=== PATIENT | male | born 1950 | race Caucasian/White ===

== ENCOUNTER 2016-10-02 07:59 | Day surgery (SDC) | payer BC, OTHER ==
[2016-10-02 08:36] VITALS: BMI 30.7
[2016-10-02] MEDS ORDERED: PROPOFOL 20 ML ONE ×2 (08:37)
[2016-10-02] MEDS ORDERED: METOPROLOL TARTRATE 5 MG/5 ML VIAL ONE (09:22)
[2016-10-02 09:53] VITALS: TEMP 97.6
[2016-10-02 11:00] VITALS: BP 122/57; PULSE 77
--- NOTE | 2016-10-03 12:35 | PATH ---
Surgical Pathology Report Patient Name: JUAN ABBASI [facility]. Rec. #: [id number] /Age/Gender: 1950 (Age: 66) / M Account: [id number] Location: U-ENDOSCOPY Taken: 10/02/2016 Received: 10/02/2016 Reported: 10/03/2016 Physicians: Sera Brothers M.D. Specimen(s) Received A: BX 2ND PORTION DUODENUM & DUODENAL BULB B: BX ANTRUM C: BX GE JUNCTION D: BX DISTAL ESOPHAGUS E: BX MID ESOPHAGUS F: POLYP CECUM G: POLYP DISTAL TRANSVERSE COLON H: POLYP DESCENDING COLON I: POLYP SIGMOID STRICTURE J: BX RECTAL POLYP Clinical History Dysphagia, colon cancer screening, polyps surveillance Distal esophageal stricture with GE nodule, GERD, atrophic gastritis, colon polyps Final Diagnosis A. DUODENUM, SECOND PORTION AND BULB, BIOPSY: DUODENAL MUCOSA WITH ACTIVE AND CHRONIC INFLAMMATION, FOCAL SURFACE ULCERATION AND ULCER SLOUGH, [place] HYPERPLASIA AND FOCAL GASTRIC METAPLASIA CONSISTENT WITH ACTIVE PEPTIC DUODENITIS. NO HISTOLOGIC EVIDENCE OF GLUTEN SENSITIVE ENTEROPATHY (CELIAC DISEASE). B. STOMACH, ANTRUM, BIOPSY: GASTRIC OXYNTIC AND ANTRAL MUCOSA WITH MODERATE CHRONIC GASTRITIS AND FOVEOLAR HYPERPLASIA. IMMUNOSTAIN FOR H. PYLORI IS NEGATIVE FOR ORGANISMS. C. GE JUNCTION, BIOPSY: SQUAMOCOLUMNAR JUNCTIONAL MUCOSA WITH CHRONIC INFLAMMATION AND REFLUX TYPE CHANGES. NO INTESTINAL METAPLASIA (WESTBROOK'S ESOPHAGUS) IDENTIFIED. D. ESOPHAGUS, DISTAL, STRICTURE, BIOPSY: SQUAMOUS EPITHELIUM WITH CHRONIC INFLAMMATION, REFLUX TYPE CHANGES AND FOCAL MARKED INCREASE IN EOSINOPHILS (SEE COMMENT). NO COLUMNAR EPITHELIUM PRESENT (NO INTESTINAL METAPLASIA/WESTBROOK'S ESOPHAGUS IDENTIFIED). Comment: The biopsy shows focal significant increase in intraepithelial eosinophils with the eosinophil count focally reaching 15-20/HPF. While intraepithelial eosinophils may be seen in GERD, the number of eosinophils of 15-20/HPF is at the level of threshold for eosinophilic esophagitis and may be suggestive of eosinophilic esophagitis in proper clinical settings. Clinical and endoscopic correlations and followup are suggested. E. ESOPHAGUS, MID, BIOPSY: SQUAMOUS EPITHELIUM WITH CHRONIC INFLAMMATION AND REFLUX TYPE CHANGES. NO SIGNIFICANT INCREASE IN INTRAEPITHELIAL EOSINOPHILS SEEN IN THIS BIOPSY MATERIAL. F. COLON, CECUM, POLYP, POLYPECTOMY: HYPERPLASTIC-TYPE POLYP WITH FEATURES OF SESSILE SERRATED ADENOMA. G. COLON, DISTAL TRANSVERSE, POLYP, POLYPECTOMY: TUBULAR ADENOMA. H. COLON, DESCENDING, POLYP, POLYPECTOMY: TUBULAR ADENOMA. I. COLON, SIGMOID, POLYP, POLYPECTOMY: HYPERPLASTIC POLYP WITH CAUTERY ARTIFACT. J. RECTUM, POLYP, BIOPSY: FRAGMENTS OF HYPERPLASTIC POLYP. Electronically Signed Stef Gilbert M.D. Gross Description A. Received in formalin, labeled "biopsy second portion of duodenum and bulb" are 3 taylor, irregular portions of soft tissue ranging from 0.4-0.5 cm in greatest dimension. The specimens are submitted in toto in one cassette. B. Received in formalin, labeled "biopsy antrum" are 4 taylor, irregular portions of soft tissue ranging from 0.2-0.6 cm in greatest dimension. The specimens are submitted in toto in one cassette. C. Received in formalin, labeled "biopsy GE nodule" are 3 taylor, irregular portions of soft tissue ranging from 0.3-0.4 cm in greatest dimension. The specimens are submitted in toto in one cassette. D. Received in formalin, labeled "biopsy distal esophageal structure" are 3 taylor, irregular portions of soft tissue ranging from 0.2-0.5 cm in greatest dimension. The specimens are submitted in toto in one cassette. E. Received in formalin, labeled "biopsy mid esophagus" are 2 taylor, irregular portions of soft tissue averaging 0.3 cm in greatest dimension. The specimens are submitted in toto in one cassette. F. Received in formalin, labeled "polyp cecum" is a taylor, irregular portion of soft tissue measuring 0.5 cm in greatest dimension. The specimen is submitted in toto in one cassette. G. Received in formalin, labeled "polyp distal transverse colon" is a taylor, irregular portion of soft tissue measuring 0.2 cm in greatest dimension. The specimen is submitted in toto in one cassette. H. Received in formalin, labeled "polyp descending colon" is a taylor, irregular portion of soft tissue measuring 0.4 cm in greatest dimension. The specimen is submitted in toto in one cassette. I. Received in formalin, labeled "polyp sigmoid" is a taylor, irregular portion of soft tissue measuring less than 0.1 cm in greatest dimension. The specimen is submitted in toto in one cassette. J. Received in formalin, labeled "biopsy rectal polyp" are 2 taylor, irregular portions of soft tissue measuring 0.2 and 0.8 cm in greatest dimension. The specimens are submitted in toto in one cassette. DL/10/02/2016 saudi/10/02/2016
== END 2016-10-02 11:00 | disposition home or self-care (01) ==
LOC: JASU-ENDO 07:59
PROVIDERS: ATTEND Internal Medicine Gastroenterology
PROC: 0DBL8ZX Excision of Transverse Colon, Via Natural or Artificial Opening Endoscopic, Diagnostic (ICD-10-PCS; 2016-10-02)
PROC: 0DBM8ZX Excision of Descending Colon, Via Natural or Artificial Opening Endoscopic, Diagnostic (ICD-10-PCS; 2016-10-02)
PROC: 0DBN8ZX Excision of Sigmoid Colon, Via Natural or Artificial Opening Endoscopic, Diagnostic (ICD-10-PCS; 2016-10-02)
PROC: 0DBP8ZX Excision of Rectum, Via Natural or Artificial Opening Endoscopic, Diagnostic (ICD-10-PCS; 2016-10-02)
PROC: 0DB48ZX Excision of Esophagogastric Junction, Via Natural or Artificial Opening Endoscopic, Diagnostic (ICD-10-PCS; 2016-10-02)
PROC: 0DB68ZX Excision of Stomach, Via Natural or Artificial Opening Endoscopic, Diagnostic (ICD-10-PCS; 2016-10-02)
PROC: 0DB38ZX Excision of Lower Esophagus, Via Natural or Artificial Opening Endoscopic, Diagnostic (ICD-10-PCS; 2016-10-02)
PROC: 0D738ZZ Dilation of Lower Esophagus, Via Natural or Artificial Opening Endoscopic (ICD-10-PCS; 2016-10-02)
PROC: 0DBH8ZX Excision of Cecum, Via Natural or Artificial Opening Endoscopic, Diagnostic (ICD-10-PCS; principal; 2016-10-02 09:00)
DX: Z12.11 Encounter for screening for malignant neoplasm of colon (principal); Z86.010 Personal history of colon polyps; D12.0 Benign neoplasm of cecum; D12.3 Benign neoplasm of transverse colon; D12.4 Benign neoplasm of descending colon; D12.5 Benign neoplasm of sigmoid colon; K62.1 Rectal polyp; K64.8 Other hemorrhoids; K22.2 Esophageal obstruction; K31.7 Polyp of stomach and duodenum; K29.80 Duodenitis without bleeding; K31.89 Other diseases of stomach and duodenum
CPT/HCPCS: 88305-TC; 88342-TC

== ENCOUNTER 2019-03-24 07:56 | Day surgery (SDC) | payer BC, OTHER ==
[2019-03-23 16:27] VITALS: BMI 31.6
[2019-03-24 09:59] VITALS: TEMP 98
[2019-03-24 11:07] VITALS: BP 141/60; PULSE 78
--- NOTE | 2019-03-26 11:59 | PATH ---
Surgical Pathology Report Patient Name: JUAN ABBASI [facility]. Rec. #: [id number] /Age/Gender: 1950 (Age: 68) / M Account: [id number] Location: [facility]OS[facility] Taken: 03/24/2019 Received: 03/24/2019 Reported: 03/26/2019 Physicians: Sera Brothers M.D. Specimen(s) Received A: ANTRUM B: ANTRUM POLYP C: DISTAL ESOPHAGUS STRICTURE Clinical History Esophageal nodule, Dysphagia r/o esophageal stricture Postoperative diagnosis GERD, antrum polyp, distal esophageal stricture, diverticulosis Final Diagnosis A. ANTRUM, BIOPSY: GASTRIC MUCOSA WITH CHRONIC GASTRITIS. IMMUNOSTAIN FOR H. PYLORI IS NEGATIVE. NEGATIVE FOR INTESTINAL METAPLASIA. B. ANTRUM POLYP, BIOPSY: POLYPOID GASTRIC MUCOSA WITH CHRONIC GASTRITIS. REACTIVE GASTROPATHY PRESENT. IMMUNOSTAIN FOR H. PYLORI IS NEGATIVE. NEGATIVE FOR INTESTINAL METAPLASIA. C. DISTAL ESOPHAGUS STRICTURE, BIOPSY: ESOPHAGEAL MUCOSA WITH REFLUX ESOPHAGITIS. NEGATIVE FOR INTESTINAL METAPLASIA. Electronically Signed Abebe Sharpe M.D. Gross Description A. Received in formalin, labeled "antrum" are 2 taylor, irregular soft tissue measuring 0.3 cm. in greatest dimension. The specimen is submitted in toto in one cassette. B. Received in formalin, labeled "antral polyp" are 2 taylor portions of soft tissue measuring 0.1 to 0.2 cm. in greatest dimension. The specimen is submitted in toto in one cassette. C. Received in formalin, labeled "distal esophageal stricture" are 2 taylor, irregular soft tissue measuring 0.1 to 0.3 cm. in greatest dimension. The specimen is submitted in toto in one cassette. KWS/03/24/2019 jian/03/24/2019
== END 2019-03-24 11:00 | disposition home or self-care (01) ==
LOC: JASU-ENDO 07:56
PROVIDERS: ATTEND Internal Medicine Gastroenterology
PROC: 0D738ZZ Dilation of Lower Esophagus, Via Natural or Artificial Opening Endoscopic (ICD-10-PCS; 2019-03-24)
PROC: 0DB38ZX Excision of Lower Esophagus, Via Natural or Artificial Opening Endoscopic, Diagnostic (ICD-10-PCS; 2019-03-24)
PROC: 0DB68ZX Excision of Stomach, Via Natural or Artificial Opening Endoscopic, Diagnostic (ICD-10-PCS; 2019-03-24)
PROC: 0DJD8ZZ Inspection of Lower Intestinal Tract, Via Natural or Artificial Opening Endoscopic (ICD-10-PCS; principal; 2019-03-24 09:15)
DX: Z86.010 Personal history of colon polyps (principal); K55.20 Angiodysplasia of colon without hemorrhage; K57.30 Diverticulosis of large intestine without perforation or abscess without bleeding; K64.8 Other hemorrhoids; K22.2 Esophageal obstruction; K29.50 Unspecified chronic gastritis without bleeding; K31.9 Disease of stomach and duodenum, unspecified; K12.0 Recurrent oral aphthae; K31.7 Polyp of stomach and duodenum; E11.9 Type 2 diabetes mellitus without complications; I10 Essential (primary) hypertension; I25.10 Atherosclerotic heart disease of native coronary artery without angina pectoris; N40.0 Benign prostatic hyperplasia without lower urinary tract symptoms; Z79.4 Long term (current) use of insulin; E78.5 Hyperlipidemia, unspecified; Z95.1 Presence of aortocoronary bypass graft; Z95.5 Presence of coronary angioplasty implant and graft
CPT/HCPCS: 88305-TC; 88342-TC